=== PATIENT | male | born 1990 | race Caucasian/White ===

== ENCOUNTER 2023-05-20 13:45 | Emergency (ER) | payer OTHER ==
[~2023-05-20] VITALS: Ht 170.2 cm; Wt 79.4 kg
[2023-05-20 13:58] VITALS: BP 133/65; PULSE 78; RESP 16; TEMP 97.9; O2SAT 97
[2023-05-20] MEDS ORDERED: BACITRACIN OINT 500 UNITS/GM PKT TP ONE (14:25)
[2023-05-20] MEDS ORDERED: BACI-418 TP (15:24)
[2023-05-20 15:34] VITALS: BP 133/65; PULSE 78; RESP 16; TEMP 97.9; O2SAT 97
== END 2023-05-20 15:34 ==
LOC: MED 13:45
DX: S80.12XA Contusion of left lower leg, initial encounter (principal); Z79.899 Other long term (current) drug therapy; W01.0XXA Fall on same level from slipping, tripping and stumbling without subsequent striking against object, initial encounter; Y93.39 Activity, other involving climbing, rappelling and jumping off; Y92.89 Other specified places as the place of occurrence of the external cause; Y99.8 Other external cause status
CPT/HCPCS: 73590; 90471; 90715; 99283

== ENCOUNTER 2023-09-28 01:50 | Emergency (ER) | payer OTHER ==
[~2023-09-28] VITALS: Ht 180.3 cm; Wt 72.6 kg
[~2023-09-28 01:50] MED LIST: BACI-418 TP
[2023-09-28 01:51] VITALS: BP 131/89; PULSE 74; RESP 16; TEMP 97.4; O2SAT 100
[2023-09-28] MEDS ORDERED: SULF-59 PO ×2 (02:17→02:19)
[2023-09-28] MEDS ORDERED: CEPH-588 PO ×2 (02:17→02:19)
[2023-09-28 02:59] VITALS: BP 128/78; PULSE 74; RESP 16; TEMP 97.4; O2SAT 100
== END 2023-09-28 02:59 | disposition home or self-care (01) ==
LOC: MED 01:50
DX: Z02.89 Encounter for other administrative examinations (principal); L03.012 Cellulitis of left finger; Z79.2 Long term (current) use of antibiotics
CPT/HCPCS: 99283